=== PATIENT | female | born 1975 | race African-American/Black ===

== ENCOUNTER 2016-11-25 15:49 | Emergency (ER) | payer OTHER ==
[~2016-11-25 15:49] MED LIST: AMOXICILLIN500 M1 PO; BENTYL20 MG PO; CARAFATE1 G PO; CLARITIN10 M2 PO; CLINDAMYCIN HC300 MG PO; DICLOFENAC PO; DICYCLOMINE HCL20 MG PO; EFFEXOR; FLEXERIL10 MG PO; FLONASE16 GM; LIBRAX CAPSULE1 CA1 PO; LISINOPRIL PO; LORTAB 10-5001 EACH PO; MEDROL PO; MEGESTROL; MOTRIN600 M1 PO; NAPROSYN500 MG PO; NAPROXEN PO; NEO SYNEPHRINE; NEURONTIN800 MG PO; NORCO 10-325 TA1 TAB PO; NORFLEX100 M1 PO; PHENERGAN DM1 ML PO; PHENERGAN PO; PHENERGAN25 M1 PO; PRILOSEC PO; PRILOSEC20 M1 PO; PROTONIX PO; PROZAC PO; REGLAN PO; ROBITUSSIN15 MG PO; SUDAFED30 M1 PO; TESSALON200 MG PO; VOLTAREN75 MG PO; WELLBUTRIN SR150 MG PO; ZANAFLEX4 M1 PO; ZESTORETIC 20/11 TAB PO; ZITHROMAX PO; ZITHROMAX1 G/PKT PO; ZYRTEC10 M2 PO
[2016-11-25] MEDS ORDERED: FLEXERIL10 MG PO (15:59)
== END 2016-11-25 16:56 | disposition home or self-care (01) ==
LOC: SED 15:49
DX: J06.9 Acute upper respiratory infection, unspecified (principal); F17.200 Nicotine dependence, unspecified, uncomplicated; D50.9 Iron deficiency anemia, unspecified; K21.9 Gastro-esophageal reflux disease without esophagitis; K90.0 Celiac disease; F41.9 Anxiety disorder, unspecified; F32.9 Major depressive disorder, single episode, unspecified; Z98.890 Other specified postprocedural states
CPT/HCPCS: 99282